=== PATIENT | female | born 1995 | race Hispanic/Latino ===

== ENCOUNTER 2017-06-03 01:26 | Emergency (ER) | payer BC ==
[2017-06-03] MEDS ORDERED: Lorazepam 2 MG/ML VIAL ONE (03:15)
[2017-06-03] MEDS ORDERED: Mag-Al 1200 mg/1200 mg/30 ML UDCUP ONE (03:15)
[2017-06-03] MEDS ORDERED: Famotidine/PF 20 mg/2ml Vial ONE (03:16)
[2017-06-03] MEDS ORDERED: Lidocaine Viscous Sol 2% 15 ml UD Cup ONE (03:16)
[2017-06-03] MEDS ORDERED: Ondansetron HCl/PF 4 MG/2 ML Vial ONE (03:16)
--- NOTE | 2017-06-03 09:31 | RAD ---
2 VIEWS CHEST: Date: 06/03/17 COMPARISON: None. HISTORY: Chest pain. FINDINGS: Two views of the chest show normal sized cardiomediastinal silhouette. There is no evidence of conso lidation, mass, or pleural effusion. The bones are unremarkable. IMPRESSION: No evidence of acute cardiopulmonary disease. POS: [id number]
== END 2017-06-03 04:14 | disposition home or self-care (01) ==
LOC: ERS 01:26
DX: K21.9 Gastro-esophageal reflux disease without esophagitis (principal); F43.9 Reaction to severe stress, unspecified
CPT/HCPCS: 71020; 93005; 96361; 96374; 96375; J2060; J2405; S0028